=== PATIENT | male | born 1945 | race Caucasian/White ===

== ENCOUNTER → 2024-07-23 06:53 | Outpatient (CLI) | payer OTHER ==
[2024-07-23 07:36] LABS: HEMOGLOBIN 15.5 g/dL (13-16.00); MEAN CELL VOLUME 100.9 fL (80.0-100.00); MEAN CORPUSCULAR HGB CONC 33.7 g/dl (32.0-36.0); RED BLOOD COUNT 4.56 M/uL (4.00-6.00); RED CELL DISTRIBUTION WIDTH 14.2 % (11.5-14.5)
[2024-07-23 07:39] LABS: PLATELET COUNT 89 K/uL (150-450)
[2024-07-23 08:19] LABS: % SATURACION 43.9 % (20-50); BILIRUBIN TOTAL 1.24 mg/dL (0.3-1.2); CALCIUM 8.9 mg/dL (8.5-10.1); CREATININE SERUM 0.72 mg/dL (0.70-1.30); FERRITIN 201.1 NG/ML (26-388); GFR 105.31; GLOBULINA 3.2 G/DL (2.4-3.5); POTASSIUM 4.22 mEq/L (3.5-5.1); T4 FREE 0.84 NG/ML (0.76-1.46); TOTAL PROTEIN 7.2 gm/dL (6.4-8.2); TSH 2.35 uIU/mL (0.358-3.74)
[2024-07-23 08:28] LABS: MANUAL PLATELET COUNT 124
[2024-07-23 08:29] LABS: PLATELET ESTIMATE DECREASED (NORMAL)
[2024-07-23 14:17] LABS: FOLIC ACID > 20.00 ng/ml (4.78-20)
[2024-07-25 01:06] LABS: hav igm Negative (Negative); hcv Non Reactive (Non Reactive); hep b c Negative (Negative); hep b s ag Negative (Negative)
[2024-07-25 05:06] LABS: ANTI THYROID PEROXIDASE < 9 IU/mL (0-34); TRANSFERIN 195 mg/dL (177-329)
[2024-07-26 17:05] LABS: Glycopro Negative (Negative); HL Positive (Negative); la Negative (Negative); lb Negative (Negative); llb Negative (Negative)
[2024-07-27 23:04] LABS: PARIETAL CELL ANTIBODIES 49.4 Units (0.0-20.0)
== END | disposition home or self-care (01) ==
LOC: LAB 06:53
PROVIDERS: ATTEND Internal Medicine Hematology & Oncology
DX: D50.8 Other iron deficiency anemias (principal); R79.9 Abnormal finding of blood chemistry, unspecified; I10 Essential (primary) hypertension; R74.02 Elevation of levels of lactic acid dehydrogenase [LDH]; K76.89 Other specified diseases of liver; C61 Malignant neoplasm of prostate; D69.6 Thrombocytopenia, unspecified; E78.2 Mixed hyperlipidemia; D51.1 Vitamin B12 deficiency anemia due to selective vitamin B12 malabsorption with proteinuria; Z11.59 Encounter for screening for other viral diseases; B17.9 Acute viral hepatitis, unspecified; E03.8 Other specified hypothyroidism

== ENCOUNTER 2024-11-27 07:28 | Outpatient (CLI) | payer OTHER ==
[2024-11-27 08:58] LABS: HEMATOCRIT 46.5 % (39.0-48.0); HEMOGLOBIN 15.5 g/dL (13-16.00); MEAN CELL VOLUME 101.4 fL (80.0-100.00); MEAN CORPUSCULAR HEMOGLOBIN 33.7 pg (27.00-32.0); MEAN CORPUSCULAR HGB CONC 33.2 g/dl (32.0-36.0); RED BLOOD COUNT 4.59 M/uL (4.00-6.00); RED CELL DISTRIBUTION WIDTH 14.1 % (11.5-14.5)
[2024-11-27 09:06] LABS: PLATELET COUNT 102 K/uL (150-450)
[2024-11-27 09:54] LABS: ALBUMIN 3.9 gm/dL (3.4-5.0); BILIRUBIN TOTAL 1.11 mg/dL (0.3-1.2); CREATININE SERUM 0.75 mg/dL (0.70-1.30); GFR 100.2; GLOBULINA 3.1 G/DL (2.4-3.5); POTASSIUM 3.86 mEq/L (3.5-5.1)
[2024-11-27 11:18] LABS: FOLIC ACID > 20.00 ng/ml (4.78-20)
[2024-11-28 14:04] LABS: COMPLEMENT C3 113 mg/dL (82-167); COMPLEMENT C4 20 mg/dL (12-38); CYCLIC CITRULLINE PEPTIDE 6 units (0-19)
[2024-11-28 14:45] LABS: MANUAL PLATELET COUNT 150
[2024-11-28 14:46] LABS: PLATELET ESTIMATE NORMAL (NORMAL)
[2024-11-28 16:08] LABS: ANTI JO 1 < 0.2 AI (0.0-0.9); ANTI SCLERODERMA 70 < 0.2 AI (0.0-0.9); DNA AB DOUBLE STRABDED 1 IU/mL (0-9); rnp < 0.2 AI (0.0-0.9); sjogrens ssa < 0.2 AI (0.0-0.9); sjogrens ssb < 0.2 AI (0.0-0.9); smith ab < 0.2 AI (0.0-0.9)
[2024-11-29 18:04] LABS: Glycopro Negative (Negative); HL Negative (Negative); la Negative (Negative); lb Negative (Negative); llb Negative (Negative)
[2024-11-30 18:08] LABS: ANTI MITOCHONDRIAL ANTIBODIES < 20.0 Units (0.0-20.0); INTRINSIC FACTOR BLOCKING AB 3.5 AU/mL (0.0-1.1); PARIETAL CELL ANTIBODIES 42.4 Units (0.0-20.0); SMOOTH MUSCLE ANTIBODY 6 Units (0-19)
== END 2024-11-27 07:29 | disposition home or self-care (01) ==
LOC: LAB 07:28
PROVIDERS: ATTEND Internal Medicine Hematology & Oncology
DX: D50.8 Other iron deficiency anemias (principal); R79.9 Abnormal finding of blood chemistry, unspecified; I10 Essential (primary) hypertension; R74.02 Elevation of levels of lactic acid dehydrogenase [LDH]; K76.89 Other specified diseases of liver; D69.6 Thrombocytopenia, unspecified; D51.8 Other vitamin B12 deficiency anemias; D51.1 Vitamin B12 deficiency anemia due to selective vitamin B12 malabsorption with proteinuria; D51.0 Vitamin B12 deficiency anemia due to intrinsic factor deficiency; M32.9 Systemic lupus erythematosus, unspecified; M06.9 Rheumatoid arthritis, unspecified; K74.3 Primary biliary cirrhosis; M33.20 Polymyositis, organ involvement unspecified; M05.9 Rheumatoid arthritis with rheumatoid factor, unspecified; D69.3 Immune thrombocytopenic purpura; C61 Malignant neoplasm of prostate; D51.3 Other dietary vitamin B12 deficiency anemia; E78.2 Mixed hyperlipidemia; M79.2 Neuralgia and neuritis, unspecified

== ENCOUNTER 2025-06-17 07:09 | Outpatient (CLI) | payer OTHER ==
[2025-06-17 07:43] LABS: BASO % 0.8 % (0.1-1.2); EOS # 0.07 (0.04-0.54); EOS % 1.8 % (0.7-7.0); LYMPH # 0.26 (1.18-3.74); LYMPH % 6.6 % (19.3-53.1); MEAN PLATELET VOLUME 10.50 fl (9.4-12.4); MONO # 0.55 (0.24-0.82); NEUT # 3.04 (1.56-6.13); NEUT % 76.6 % (34.0-71.1); RED CELL DISTRIBUTION WIDTH 13.2 % (11.6-14.4)
[2025-06-17 07:44] LABS: MONO % 13.9 % (4.7-12.5)
[2025-06-17 08:27] LABS: ALT/SGPT 30.0 U/L (12-78); AST/SGOT 19.0 U/L (15-37); BILIRUBIN TOTAL 1.58 mg/dL (0.3-1.2); BUN CREA RATIO 20.0 (7.0-25.0); CREATININE SERUM 0.83 mg/dL (0.70-1.30); FE 25.0 ug/dl (65-175); GFR 89.14; GLOBULINA 2.8 G/DL (2.4-3.5); GLUCOSE FASTING 92.0 mg/dL (65-100); LDH 136.0 U/L (87-241); OSMOLALITY SERUM 286.0 MOSM/KG (275-295); PROSTATIC SPECIFIC ANTIGEN 0.164 NG/ML (0.010-4.00)
[2025-06-17 10:32] LABS: FOLIC ACID > 20.00 ng/ml (4.78-20)
[2025-06-17 14:59] LABS: MANUAL PLATELET COUNT 78
[2025-06-18 09:08] LABS: CA 125 3.7 U/mL (Not Estab.); CA 19-9 3.0 U/mL (0-35)
== END 2025-06-17 07:13 | disposition home or self-care (01) ==
LOC: LAB 07:09
PROVIDERS: ATTEND Internal Medicine Hematology & Oncology
DX: D50.8 Other iron deficiency anemias (principal); R79.9 Abnormal finding of blood chemistry, unspecified; I10 Essential (primary) hypertension; R74.02 Elevation of levels of lactic acid dehydrogenase [LDH]; K76.89 Other specified diseases of liver; D69.6 Thrombocytopenia, unspecified; D51.1 Vitamin B12 deficiency anemia due to selective vitamin B12 malabsorption with proteinuria; C25.9 Malignant neoplasm of pancreas, unspecified; R97.0 Elevated carcinoembryonic antigen [CEA]; D69.3 Immune thrombocytopenic purpura; C61 Malignant neoplasm of prostate; D51.3 Other dietary vitamin B12 deficiency anemia; E78.2 Mixed hyperlipidemia

== ENCOUNTER 2025-07-31 06:26 | Outpatient (CLI) | payer OTHER ==
[2025-07-31 07:15] LABS: BASO % 1.1 % (0.1-1.2); EOS # 0.16 (0.04-0.54); EOS % 4.3 % (0.7-7.0); LYMPH # 0.47 (1.18-3.74); LYMPH % 12.6 % (19.3-53.1); MEAN PLATELET VOLUME 11.10 fl (9.4-12.4); MONO # 0.49 (0.24-0.82); NEUT # 2.56 (1.56-6.13); NEUT % 68.6 % (34.0-71.1); RED CELL DISTRIBUTION WIDTH 13.7 % (11.6-14.4)
[2025-07-31 07:16] LABS: MONO % 13.1 % (4.7-12.5)
[2025-07-31 07:38] LABS: INR 1.10
[2025-07-31 08:07] LABS: % SATURACION 53.8 % (20-50); ALT/SGPT 31.0 U/L (12-78); AST/SGOT 24.0 U/L (15-37); BILIRUBIN TOTAL 1.62 mg/dL (0.3-1.2); BUN CREA RATIO 31.0 (7.0-25.0); CREATININE SERUM 0.74 mg/dL (0.70-1.30); FE 133.0 ug/dl (65-175); GFR 101.77; GLOBULINA 3.0 G/DL (2.4-3.5); GLUCOSE FASTING 89.0 mg/dL (65-100); LDH 149.0 U/L (87-241); OSMOLALITY SERUM 288.0 MOSM/KG (275-295)
[2025-07-31 08:19] LABS: ob NEGATIVE (NEGATIVE)
[2025-07-31 08:37] LABS: COL EPI 167 SECONDS (82-175)
[2025-07-31 12:57] LABS: MANUAL PLATELET COUNT 112
== END 2025-07-31 06:27 | disposition home or self-care (01) ==
LOC: LAB 06:26
PROVIDERS: ATTEND Internal Medicine Hematology & Oncology
DX: D50.8 Other iron deficiency anemias (principal); D51.0 Vitamin B12 deficiency anemia due to intrinsic factor deficiency; D51.3 Other dietary vitamin B12 deficiency anemia; D69.3 Immune thrombocytopenic purpura; D51.1 Vitamin B12 deficiency anemia due to selective vitamin B12 malabsorption with proteinuria; C61 Malignant neoplasm of prostate; I10 Essential (primary) hypertension; E78.2 Mixed hyperlipidemia; R74.02 Elevation of levels of lactic acid dehydrogenase [LDH]; K76.89 Other specified diseases of liver; Z12.11 Encounter for screening for malignant neoplasm of colon; R19.5 Other fecal abnormalities; D68.8 Other specified coagulation defects; E56.1 Deficiency of vitamin K; D69.1 Qualitative platelet defects